=== PATIENT | female | born 1930 | race Caucasian/White ===

== ENCOUNTER 2018-11-08 18:21 | Emergency (ER) | payer MEDICARE, BC ==
[2018-11-08] MEDS ORDERED: Lisinopril 10 MG Tab PO ONE (19:16)
[2018-11-08] MEDS ORDERED: Propranolol 80 MG Cap.ER PO ONE (19:17)
[2018-11-08] MEDS ORDERED: Diltiazem 120 MG Cap.CD PO ONE (19:23)
--- NOTE | 2018-11-08 19:24 | EDM.PDOC ---
ED HPI GENERAL MEDICAL PROBLEM - General Chief Complaint: General Stated Complaint: MEDICAL VIA [facility] Time Seen by Provider: 11/08/18 19:19 Source of Information: Reports: Patient History Limitations: Reports: No Limitations - History of Present Illness INITIAL COMMENTS - FREE TEXT/NARRATIVE: pt arrived with a history of feeling very shakey and lite headed she did not pass out. She did not have chest pain. Onset: Today, Sudden, Other ( The apartment was very warm and she was cooking and the heat overwhelmed her. ) Duration: Hour(s): Location: Reports: Chest, Generalized Associated Symptoms: Reports: Diaphoresis, Weakness Denies Pain Score (Numeric/FACES): 0 - Related Data Allergies Allergy/AdvReac Type Severity Reaction Status Date / Time ibuprofen Allergy Anaphylactic Verified 11/08/18 18:42 Shock Penicillins Allergy Swelling Verified 11/08/18 18:42 Home Meds: Home Meds Aspirin [Jeevan Chewable] 81 mg PO DAILY 04/14/13 [History] Brimonidine/Timolol [Combigan 0.2%/0.5% Ophth Soln] 1 drop TOP BID 04/14/13 [ History] Diltiazem HCl [Dilt-Xr] 1 tab PO BID 04/14/13 [History] metFORMIN [Glucophage] 1 tab PO DAILY 04/14/13 [History] Folic Acid/Multivit-Min/Lutein [Centrum Silver Chewable Tablet] 1 tab PO DAILY 11/08/18 [History] Hydrochlorothiazide [Microzide] 12.5 mg PO DAILY 11/08/18 [History] Lisinopril 20 mg PO BID 11/08/18 [History] Propranolol HCl [Propranolol] 40 mg PO BID 11/08/18 [History] Past Medical History HEENT History: Reports: Glaucoma, Hard of Hearing, Impaired Vision Cardiovascular History: Reports: Hypertension Genitourinary History: Reports: UTI, Recurrent Musculoskeletal History: Reports: Arthritis Neurological History: Reports: Other (See Below) Other Neuro History: essential tremors. Endocrine/Metabolic History: Reports: Diabetes, Type II - Infectious Disease History Infectious Disease History: Reports: Chicken Pox, Measles, Mumps, Shingles - Past Surgical History HEENT Surgical History: Reports: Cataract Surgery, Tonsillectomy GI Surgical History: Reports: Appendectomy, Colonoscopy Female Surgical History: Reports: Hysterectomy Musculoskeletal Surgical History: Reports: Knee Replacement Social & Family History - Tobacco Use Smoking Status *Q: Former Smoker Years of Tobacco use: 10 Packs/Tins Daily: 0.5 Used Tobacco, but Quit: Yes Month/Year Tobacco Last Used: 1969 Second Hand Smoke Exposure: No - Caffeine Use Caffeine Use: Reports: Coffee - Alcohol Use Days Per Week of Alcohol Use: 0 - Recreational Drug Use Recreational Drug Use: No ED ROS GENERAL - Review of Systems Review Of Systems: See Below Constitutional: Reports: Weakness, Other (pt felt very shaky. ) HEENT: Reports: No Symptoms Respiratory: Reports: Cough, Other ( The cough has increased in the last week. ) Cardiovascular: Reports: No Symptoms Endocrine: Reports: No Symptoms GI/Abdominal: Reports: No Symptoms : Reports: Dysuria, Frequency Musculoskeletal: Reports: No Symptoms Skin: Reports: No Symptoms Neurological: Reports: Weakness, Other (pt had the sensation that she could pass out. ) ED EXAM, GENERAL - Physical Exam Exam: See Below Free Text/Narrative:: pt arrived with a history of feeling very shakey and weak. She had the sensation that she could pass out. Exam Limited By: No Limitations General Appearance: Alert, No Apparent Distress, Anxious, Other (pupils equal and reactive. ) Ears: Normal TMs Nose: Normal Inspection Throat/Mouth: Normal Inspection Head: Atraumatic Neck: Normal Inspection Respiratory/Chest: No Respiratory Distress, Other (pt has had a cough. ) Cardiovascular: Regular Rate, Rhythm GI/Abdominal: Soft, Non-Tender (Female) Exam: Deferred Rectal (Female) Exam: Deferred Back Exam: Normal Inspection Extremities: Normal Inspection Neurological: Alert, Oriented, Normal Cognition Psychiatric: Normal Affect Course - Vital Signs Last Recorded V/S: Last Vital Signs Temp 37.5 C 11/08/18 18:42 Pulse 91 11/08/18 21:08 Resp 16 11/08/18 18:42 BP 185/75 H 11/08/18 21:08 Pulse Ox 95 11/08/18 21:08 Orthostatic Blood Pressure [ 185/80 Standing] Orthostatic Blood Pressure [ 214/92 Sitting] Orthostatic Blood Pressure [ 210/78 Supine] - Orders/Labs/Meds Orders: Active Orders 24 hr Category Date Time Status EKG Documentation Completion [RC] ASDIRECTED Care 11/08/18 18:29 Active Orthostatic Vital Signs [RC] ASDIRECTED Care 11/08/18 19:05 Active CULTURE URINE [RM] Stat Lab 11/08/18 19:21 Received Sodium Chloride 0.9% [Normal Saline] 1,000 ml Med 11/08/18 19:30 Active IV ASDIRECTED cefTRIAXone [Rocephin] 1 gm Med 11/08/18 21:28 Ordered Sodium Chloride 0.9% [Normal Saline] 50 ml IV ONETIME EKG 12 Lead [EK] Routine Ther 11/08/18 18:29 Ordered Medication Orders Sodium Chloride (Normal Saline) 1,000 mls @ 999 mls/hr IV ASDIRECTED SUGEY Last Admin: 11/08/18 19:52 Dose: 999 mls/hr Ceftriaxone Sodium 1 gm/ (Sodium Chloride) 50 mls @ 100 mls/hr IV ONETIME ONE Stop: 11/08/18 21:57 Labs: Laboratory Tests 11/08/18 11/08/18 11/08/18 Range/Units 18:20 18:20 19:01 WBC 7.5 (4.5-11.0) K/uL RBC 4.06 (3.30-5.50) M/uL Hgb 12.0 (12.0-15.0) g/dL Hct 36.0 (36.0-48.0) % MCV 89 (80-98) fL MCH 30 (27-31) pg MCHC 33 (32-36) % Plt Count 271 (150-400) K/uL Neut % (Auto) 64 (36-66) % Lymph % (Auto) 23 L (24-44) % [place] % (Auto) 10 H (2-6) % Eos % (Auto) 3 (2-4) % Baso % (Auto) 0 (0-1) % Sodium 137 L (140-148) mmol/L Potassium 4.3 (3.6-5.2) mmol/L Chloride 100 (100-108) mmol/L Carbon Dioxide 25 (21-32) mmol/L Anion Gap 16.3 H (5.0-14.0) mmol/L BUN 35 H (7-18) mg/dL Creatinine 1.5 H (0.6-1.0) mg/dL Est Cr Clr Drug Dosing 21.03 mL/min Estimated GFR (MDRD) 33 L (>60) Glucose 214 H (74-106) mg/dL Calcium 9.4 (8.5-10.1) mg/dL Total Bilirubin 0.3 (0.2-1.0) mg/dL AST 14 L (15-37) U/L ALT 18 (12-78) U/L Alkaline Phosphatase 78 (46-116) U/L Troponin I (0.000-0.056) ng/mL Total Protein 7.6 (6.4-8.2) g/dL Albumin 3.5 (3.4-5.0) g/dL Globulin 4.1 H (2.3-3.5) g/dL Albumin/Globulin Ratio 0.9 L (1.2-2.2) Urine Color Yellow (YELLOW) Urine Appearance Clear (CLEAR) Urine pH 6.5 (5.0-8.0) Ur Specific [place] 1.020 (1.008-1.030) Urine Protein 100 H (NEGATIVE) mg/dL Urine Glucose (UA) Negative (NEGATIVE) mg/dL Urine Ketones Negative (NEGATIVE) mg/dL Urine Occult Blood Trace-intact H (NEGATIVE) Urine Nitrite Negative (NEGATIVE) Urine Bilirubin Negative (NEGATIVE) Urine Urobilinogen 0.2 (0.2-1.0) EU/dL Ur Leukocyte Esterase Small H (NEGATIVE) Urine RBC 0-5 (0-5) Urine WBC 30-40 H (0-5) Ur Epithelial Cells Few Amorphous Sediment Not seen Urine Bacteria Many Urine Mucus Not seen 11/08/18 Range/Units 19:22 WBC (4.5-11.0) K/uL RBC (3.30-5.50) M/uL Hgb (12.0-15.0) g/dL Hct (36.0-48.0) % MCV (80-98) fL MCH (27-31) pg MCHC (32-36) % Plt Count (150-400) K/uL Neut % (Auto) (36-66) % Lymph % (Auto) (24-44) % [place] % (Auto) (2-6) % Eos % (Auto) (2-4) % Baso % (Auto) (0-1) % Sodium (140-148) mmol/L Potassium (3.6-5.2) mmol/L Chloride (100-108) mmol/L Carbon Dioxide (21-32) mmol/L Anion Gap (5.0-14.0) mmol/L BUN (7-18) mg/dL Creatinine (0.6-1.0) mg/dL Est Cr Clr Drug Dosing mL/min Estimated GFR (MDRD) (>60) Glucose (74-106) mg/dL Calcium (8.5-10.1) mg/dL Total Bilirubin (0.2-1.0) mg/dL AST (15-37) U/L ALT (12-78) U/L Alkaline Phosphatase (46-116) U/L Troponin I < 0.017 (0.000-0.056) ng/mL Total Protein (6.4-8.2) g/dL Albumin (3.4-5.0) g/dL Globulin (2.3-3.5) g/dL Albumin/Globulin Ratio (1.2-2.2) Urine Color (YELLOW) Urine Appearance (CLEAR) Urine pH (5.0-8.0) Ur Specific Hardy (1.008-1.030) Urine Protein (NEGATIVE) mg/dL Urine Glucose (UA) (NEGATIVE) mg/dL Urine Ketones (NEGATIVE) mg/dL Urine Occult Blood (NEGATIVE) Urine Nitrite (NEGATIVE) Urine Bilirubin (NEGATIVE) Urine Urobilinogen (0.2-1.0) EU/dL Ur Leukocyte Esterase (NEGATIVE) Urine RBC (0-5) Urine WBC (0-5) Ur Epithelial Cells Amorphous Sediment Urine Bacteria Urine Mucus Meds: Medications Generic Name Dose Route Start Last Admin Trade Name Freq PRN Reason Stop Dose Admin Sodium Chloride 1,000 mls @ 999 mls/hr 11/08/18 19:30 11/08/18 19:52 Normal Saline IV 999 mls/hr ASDIRECTED SUGEY Administration Ceftriaxone Sodium 1 gm/ 50 mls @ 100 mls/hr 11/08/18 21:28 Sodium Chloride IV 11/08/18 21:57 ONETIME ONE Discontinued Medications Generic Name Dose Route Start Last Admin Trade Name Freq PRN Reason Stop Dose Admin Diltiazem HCl 240 mg 11/08/18 19:23 11/08/18 19:56 Cardizem Cd PO 11/08/18 19:24 240 mg ONETIME ONE Administration Lisinopril 20 mg 11/08/18 19:16 11/08/18 19:57 Prinivil PO 11/08/18 19:17 20 mg ONETIME ONE Administration Propranolol HCl 40 mg 11/08/18 19:17 Inderal La PO 11/08/18 19:18 ONETIME ONE - Re-Assessments/Exams Free Text/Narrative Re-Assessment/Exam: 11/08/18 21:32 pt arrived having a near syncopal episode and feeling very shakey. She was found to have either a pneumonia or mass in her rt chest. Her urine is infected. She was dehydrated. Departure - Departure Time of Disposition: 21:34 Disposition: Home, Self-Care 01 Condition: Fair Clinical Impression: UTI (urinary tract infection), Pneumonia, Mass in chest, Dehydration - Discharge Information Referrals: PCP,None [Primary Care Provider] - Forms: ED Department Discharge Care Plan Goals: push fluids, appt with Dr ewing at [facility] in 4-5 days, levoquin 500mg daily, rtc if increased prioblems, copy lab work and the cat scan of the chest report for her to take to her clinic visit. cont other meds the same. - My Orders Last 24 Hours: My Active Orders 11/08/18 18:29 EKG Documentation Completion [RC] ASDIRECTED EKG 12 Lead [EK] Routine 11/08/18 19:05 Orthostatic Vital Signs [RC] ASDIRECTED 11/08/18 19:21 CULTURE URINE [RM] Stat 11/08/18 19:30 Sodium Chloride 0.9% [Normal Saline] 1,000 ml IV ASDIRECTED 11/08/18 21:28 cefTRIAXone [Rocephin] 1 gm Sodium Chloride 0.9% [Normal Saline] 50 ml IV ONETIME - Assessment/Plan Last 24 Hours: My Active Orders 11/08/18 18:29 EKG Documentation Completion [RC] ASDIRECTED EKG 12 Lead [EK] Routine 11/08/18 19:05 Orthostatic Vital Signs [RC] ASDIRECTED 11/08/18 19:21 CULTURE URINE [RM] Stat 11/08/18 19:30 Sodium Chloride 0.9% [Normal Saline] 1,000 ml IV ASDIRECTED 11/08/18 21:28 cefTRIAXone [Rocephin] 1 gm Sodium Chloride 0.9% [Normal Saline] 50 ml IV ONETIME
[2018-11-08] MEDS ORDERED: Sodium Chloride 0.9% 1,000 ML IV SCH (19:30)
--- NOTE | 2018-11-08 19:45 | CRLCR ---
INDICATION: Right-sided chest pain TECHNIQUE: Chest 2 views. COMPARISON: 03/14/2006 FINDINGS: Cardiovascular and mediastinum: Heart size and vasculature are normal in caliber and appearance. Mediastinum is within normal limits. Lungs and pleural spaces: 3.5 centimeter x 3.0 centimeter opacity right upper lobe with possible air bronchograms. Findings may represent pneumonia but should be followed in 2 for resolution to exclude pulmonary mass. No sign of pleural effusion. No pneumothorax. Bones and soft tissues: No significant findings. IMPRESSION: 3.5 centimeter x 3.0 centimeter right upper lobe opacity. Findings may represent pneumonia in the right clinical setting. This should be followed to full resolution to exclude mass. CT scan of the hopefully further characterize if clinically warranted. Dictated by Ranjan Rios MD @ Nov 08 2018 7:43PM Signed by Dr. Ranjan Rios @ Nov 08 2018 7:43PM
--- NOTE | 2018-11-08 21:16 | CRLCT ---
INDICATION: Infiltrate versus mass in the right chest. TECHNIQUE: Unenhanced axial plane helical CT of the chest. Sagittal and coronal reformats generated. COMPARISON: None FINDINGS: There is no irregular dense opacity in the right upper lobe with some air bronchograms. Infectious/ inflammatory and neoplastic etiologies are considerations. There is a 2 millimeter pulmonary nodule in the middle lobe. Subsegmental atelectasis at the lung bases. By size criteria, no significantly enlarged intrathoracic lymph nodes are seen. Atherosclerotic arterial changes are seen without aortic aneurysm. No pleural or pericardial effusions are identified. Probable small nodule in the posterior left lobe of the thyroid gland. No suspicious axillary lymph nodes are seen. Small amount of pericardial fluid. Indeterminate 2 cm left adrenal nodule may represent an adenoma. IMPRESSION: 1. Elliptical shaped area of consolidation with air bronchograms in the right upper lobe. This may represent an infectious process although neoplasm not excluded and followup CT is recommended in 2-3 months. 2. 2 cm left adrenal nodule may represent an adenoma. Dedicated adrenal CT could be considered based upon clinical discretion. 3. Atherosclerotic vascular disease. 4. Small pericardial effusion. 5. Less than 1 cm low dense lesion suggested in the left lobe of the thyroid gland. Thyroid ultrasound based upon clinical discretion. PLEASE NOTE THAT ALL CT SCANS AT THIS FACILITY USE DOSE MODULATION, ITERATIVE RECONSTRUCTION, AND/OR WEIGHT-BASED DOSING WHEN APPROPRIATE TO REDUCE RADIATION TO LOW REASONABLY ACHIEVABLE. Please note that all CT scans at this facility use dose modulation, iterative reconstruction, and/or weight-based dosing when appropriate to reduce radiation dose to as low as reasonably achievable. Dictated by Lalit Curry MD @ Nov 08 2018 9:07PM Signed by Dr. Lalit Curry @ Nov 08 2018 9:14PM
[2018-11-08] MEDS ORDERED: cefTRIAXone 1 GM in Sodium Chloride 0.9% 50 ML IV ONE (21:28)
== END 2018-11-08 22:31 | disposition home or self-care (01) ==
LOC: JP.ED 18:21
DX: E86.0 Dehydration (principal); J18.9 Pneumonia, unspecified organism; N39.0 Urinary tract infection, site not specified; R22.2 Localized swelling, mass and lump, trunk; I10 Essential (primary) hypertension; E11.9 Type 2 diabetes mellitus without complications; Z88.0 Allergy status to penicillin; Z88.6 Allergy status to analgesic agent; Z79.82 Long term (current) use of aspirin; Z79.899 Other long term (current) drug therapy; Z79.84 Long term (current) use of oral hypoglycemic drugs; Z87.891 Personal history of nicotine dependence
CPT/HCPCS: 36415; 71046; 71250; 80053; 81001; 84484; 85025; 87086; 87088; 87186; 93005; 96361; 96365; 99285; A9270; J0696; J7030; J7050; 93010; 99284

== ENCOUNTER 2018-11-11 09:31 | Emergency (ER) | payer MEDICARE, BC ==
--- NOTE | 2018-11-11 10:49 | EDM.PDOC ---
ED HPI GENERAL MEDICAL PROBLEM - General Chief Complaint: Respiratory Problem Stated Complaint: SHORTNESS OF BREATH Time Seen by Provider: 11/11/18 11:28 Source of Information: Reports: Patient History Limitations: Reports: No Limitations - History of Present Illness INITIAL COMMENTS - FREE TEXT/NARRATIVE: pt has had feelings of hallucinations, and today some chest pressure. She had the sensation of sob. She has good oxgenation Onset: Today, Gradual, Other (pt has bp elevation She has a long history of a labile bp. ) Duration: Hour(s): Location: Reports: Chest, Other ( chest heaviness and heavuiness in her legs. ) Associated Symptoms: Reports: Shortness of Breath, Other ( chest heaviness) - Related Data Allergies Allergy/AdvReac Type Severity Reaction Status Date / Time ibuprofen Allergy Anaphylactic Verified 11/11/18 09:32 Shock Penicillins Allergy Swelling Verified 11/11/18 09:32 Home Meds: Home Meds Aspirin [Jeevan Chewable] 81 mg PO DAILY 04/14/13 [History] Brimonidine/Timolol [Combigan 0.2%/0.5% Ophth Soln] 1 drop TOP BID 04/14/13 [ History] Diltiazem HCl [Dilt-Xr] 1 tab PO BID 04/14/13 [History] metFORMIN [Glucophage] 1 tab PO DAILY 04/14/13 [History] Folic Acid/Multivit-Min/Lutein [Centrum Silver Chewable Tablet] 1 tab PO DAILY 11/08/18 [History] Hydrochlorothiazide [Microzide] 12.5 mg PO DAILY 11/08/18 [History] Lisinopril 20 mg PO BID 11/08/18 [History] Propranolol HCl [Propranolol] 40 mg PO BID 11/08/18 [History] Past Medical History HEENT History: Reports: Glaucoma, Hard of Hearing, Impaired Vision Cardiovascular History: Reports: Hypertension Respiratory History: Reports: None Gastrointestinal History: Reports: None Genitourinary History: Reports: UTI, Recurrent Musculoskeletal History: Reports: Arthritis Neurological History: Reports: Other (See Below) Other Neuro History: essential tremors. Endocrine/Metabolic History: Reports: Diabetes, Type II - Infectious Disease History Infectious Disease History: Reports: Chicken Pox, Measles, Mumps, Shingles - Past Surgical History Head Surgeries/Procedures: Reports: None HEENT Surgical History: Reports: Cataract Surgery, Tonsillectomy Cardiovascular Surgical History: Reports: None Respiratory Surgical History: Reports: Other (See Below) Other Respiratory Surgeries/Procedures: mass in upper right lobe? GI Surgical History: Reports: Appendectomy, Colonoscopy Female Surgical History: Reports: Hysterectomy Endocrine Surgical History: Reports: None Neurological Surgical History: Reports: None Musculoskeletal Surgical History: Reports: Knee Replacement Dermatological Surgical History: Reports: None Social & Family History - Tobacco Use Smoking Status *Q: Never Smoker Second Hand Smoke Exposure: No - Caffeine Use Caffeine Use: Reports: None - Recreational Drug Use Recreational Drug Use: No ED ROS GENERAL - Review of Systems Review Of Systems: See Below Constitutional: Reports: Other ( chest heaviness) HEENT: Reports: No Symptoms Respiratory: Reports: Shortness of Breath, Cough, Other ( pt feels like the cough is not as marked. ) Cardiovascular: Reports: Other ( chest heaviness. ) Endocrine: Reports: No Symptoms GI/Abdominal: Reports: No Symptoms : Reports: No Symptoms Musculoskeletal: Reports: No Symptoms Skin: Reports: No Symptoms ED EXAM, GENERAL - Physical Exam Exam: See Below Free Text/Narrative:: pt arrived with chest heaviness and her bp spiked. She also states that she does not feel well after she takes the inderal. She feels like she is having some hallucinations. Exam Limited By: No Limitations General Appearance: Alert, Anxious, Mild Distress, Other (pt has good oxgenation ) Ears: Normal TMs Nose: Normal Inspection Throat/Mouth: Normal Inspection Head: Atraumatic Neck: Normal Inspection Respiratory/Chest: No Respiratory Distress Cardiovascular: Regular Rate, Rhythm, Other ( tachy) GI/Abdominal: Soft, Non-Tender (Female) Exam: Deferred Rectal (Female) Exam: Deferred Back Exam: Normal Inspection Extremities: Normal Inspection Neurological: Alert, Oriented, Normal Cognition Course - Vital Signs Last Recorded V/S: Last Vital Signs Temp 36.3 C 11/11/18 09:41 Pulse 78 11/11/18 09:44 Resp 13 11/11/18 09:44 BP 155/61 H 11/11/18 09:44 Pulse Ox 95 11/11/18 09:44 - Orders/Labs/Meds Orders: Active Orders 24 hr Category Date Time Status EKG Documentation Completion [RC] ASDIRECTED Care 11/11/18 10:15 Active Chest 2V [CR] Stat Exams 11/11/18 10:08 Taken EKG 12 Lead [EK] Routine Ther 11/11/18 10:15 Ordered Labs: Laboratory Tests 11/11/18 11/11/18 Range/Units 10:24 10:24 WBC 7.8 (4.5-11.0) K/uL RBC 3.87 (3.30-5.50) M/uL Hgb 11.5 L (12.0-15.0) g/dL Hct 34.4 L (36.0-48.0) % MCV 89 (80-98) fL MCH 30 (27-31) pg MCHC 33 (32-36) % Plt Count 281 (150-400) K/uL Neut % (Auto) 67 H (36-66) % Lymph % (Auto) 21 L (24-44) % [place] % (Auto) 11 H (2-6) % Eos % (Auto) 2 (2-4) % Baso % (Auto) 0 (0-1) % Troponin I < 0.017 (0.000-0.056) ng/mL - Re-Assessments/Exams Free Text/Narrative Re-Assessment/Exam: 11/11/18 11:40 a ekg and trop was obtained and is unchanged. Her chest xray remains the same. Her bp did come down quite nicely whjile in ER Departure - Departure Time of Disposition: 11:28 Disposition: Home, Self-Care 01 Condition: Fair Clinical Impression: Infiltrate of right lung present on chest x-ray, Mass of right lung, Medication adverse effect - Discharge Information Referrals: PCP,None [Primary Care Provider] - Forms: ED Department Discharge Care Plan Goals: hold propranol, cont other meds the same, continue to followup with Dr Kaur - My Orders Last 24 Hours: My Active Orders 11/11/18 10:08 Chest 2V [CR] Stat 11/11/18 10:15 EKG Documentation Completion [RC] ASDIRECTED EKG 12 Lead [EK] Routine - Assessment/Plan Last 24 Hours: My Active Orders 11/11/18 10:08 Chest 2V [CR] Stat 11/11/18 10:15 EKG Documentation Completion [RC] ASDIRECTED EKG 12 Lead [EK] Routine
--- NOTE | 2018-11-11 11:44 | CRLCR ---
Indication: History of pneumonia. Technique: PA and lateral views the chest were obtained. Comparison: November 08, 2018. Findings: A right upper lobe infiltrate is re-identified. This is not significantly changed. The right hemidiaphragm is elevated. Heart is normal in size. No pleural effusion or pneumothorax is identified. Impression: Right upper lobe infiltrate, stable to minimally increased. Dictated by Trena Murillo MD @ Nov 11 2018 11:41AM Signed by Dr. Trena Murillo @ Nov 11 2018 11:42AM
== END 2018-11-11 11:46 | disposition home or self-care (01) ==
LOC: JP.ED 09:31
DX: R44.3 Hallucinations, unspecified (principal); R07.9 Chest pain, unspecified; T44.7X5A Adverse effect of beta-adrenoreceptor antagonists, initial encounter; R91.8 Other nonspecific abnormal finding of lung field; I10 Essential (primary) hypertension; E11.9 Type 2 diabetes mellitus without complications; Z88.0 Allergy status to penicillin; Z88.6 Allergy status to analgesic agent; Z79.82 Long term (current) use of aspirin; Z79.84 Long term (current) use of oral hypoglycemic drugs; Z79.899 Other long term (current) drug therapy; Z98.49 Cataract extraction status, unspecified eye; Z98.890 Other specified postprocedural states; Z90.710 Acquired absence of both cervix and uterus; Z90.49 Acquired absence of other specified parts of digestive tract
CPT/HCPCS: 36415; 71046; 84484; 85025; 93005; 99284; 99285-25